=== PATIENT | male | born 1975 | race Caucasian/White ===

== ENCOUNTER 2021-09-21 11:57 | Emergency (ER) | payer OTHER, SELFPAY ==
[2021-09-21 12:04] VITALS: BP 136/84; PULSE 85; RESP 18; TEMP 37.3; O2SAT 99
--- NOTE | 2021-09-21 12:26 | ED.EAR ---
HPI - Ear Problem General Chief complaint: Ear Stated complaint: ear pain Time Seen by Provider: 09/21/21 12:17 Source: patient and RN notes reviewed Mode of arrival: ambulatory Limitations: no limitations History of Present Illness HPI Narrative: 46 year old male presents with concern for right ear pain. He reports pain started yesterday with clear drainage from the ear and decreased hearing. He denies upper respiratory symptoms such as cough, nasal congestion, rhinorrhea or sore throat. Reports swimming in the [place] last week. Reports a history of external ear infection. MD Complaint: ear pain Related Data Allergies Allergy/AdvReac Type Severity Reaction Status Date / Time ofloxacin Allergy Intermediate Swelling Verified 09/21/21 12:39 Review of Systems Review of Systems: CONSTITUTIONAL: Denies malaise, chills, sweats, or fever. EYES: Denies visual changes, redness, or discharge. ENT: Denies rhinorrhea, congestion, sinus pain, and sore throat. Reports right ear pain CARDIOVASCULAR: Denies chest pain, palpitations, or edema. RESPIRATORY: Denies cough. Denies dyspnea. GASTROINTESTINAL: Denies abdominal pain, nausea, vomiting, diarrhea SKIN: Denies rash or itching. MUSCULOSKELETAL: Denies myalgia. NEUROLOGIC: Denies headache. All systems reviewed & are unremarkable except as noted in HPI and below PMFSH Comments At time of signature, agree with nursing past medical, surgical, social and family history. There is no relevant family history pertinent to the presenting complaint Exam Narrative: GENERAL: Well-appearing, well-nourished, and in no acute distress. HEAD: Normocephalic EYES: PERRLA, conjunctivae clear ENT: Nares clear. Mucous membranes moist. Left TM pearly vincent with dull light reflex; right tragal tenderness with EAC edema, erythema and purulent drainage, TM not visible. Oropharynx not erythematous without lesions. Tonsils not enlarged and without exudate, no drooling, no hoarseness, no trismus, uvula midline. NECK: Supple. No lymphadenopathy CHEST: Clear to auscultation, breath sounds equal. No wheezing, rhonchi, rales, or stridor. No respiratory distress, speaks in full sentences. HEART: Regular rate and rhythm. No murmur heard. SKIN: Warm, dry, no rash. NEURO: Alert and oriented x3. PSYCH: Normal mood and affect Course Course Emergency Course: Patient is aware of diagnosis, understands and agrees to treatment plan. Anticipatory guidance given. Patient agrees to follow-up as directed and is aware of reasons to seek care at the emergency department. Portions of this record may have been created with voice recognition software Level of Care: Express Care Visit Vital Signs Vital signs: Vital Signs Temperature 99.2 F 09/21/21 12:04 Pulse Rate 85 09/21/21 12:04 Respiratory Rate 18 09/21/21 12:04 Blood Pressure 136/84 09/21/21 12:04 Pulse Oximetry 99 09/21/21 12:04 Oxygen Delivery Room Air 09/21/21 12:04 Temperature 99.2 F 09/21/21 12:04 Pulse Rate 85 09/21/21 12:04 Respiratory Rate 18 09/21/21 12:04 Blood Pressure 136/84 09/21/21 12:04 Pulse Oximetry 99 09/21/21 12:04 Oxygen Delivery Room Air 09/21/21 12:04 Reviewed. Medical Decision Making MDM Narrative Medical decision making narrative: Differential diagnosis considered: Cosme virus, strep pharyngitis, allergic rhinitis, upper respiratory tract infection, sinusitis, rhinosinusitis, nasopharyngitis. viral pharyngitis, otitis media, otitis externa, otitis effusion, cerumen impaction, foreign body. Exam findings show no acute concerns or changes; patient is non-toxic appearing and is in no distress. Patient is appropriate for outpatient treatment and follow-up. Vital Signs Vital Signs: Vital Signs Temperature 99.2 F 09/21/21 12:04 Pulse Rate 85 09/21/21 12:04 Respiratory Rate 18 09/21/21 12:04 Blood Pressure 136/84 09/21/21 12:04 Pulse Oximetry 99 09/21/21 12:04 Oxygen Delivery Room
== END 2021-09-21 12:41 | disposition home or self-care (01) ==
PROVIDERS: Emergency Provider Nurse Practitioner
DX: H60.501 Unspecified acute noninfective otitis externa, right ear (principal); R01.1 Cardiac murmur, unspecified; Z86.16 Personal history of COVID-19
CPT/HCPCS: 99213; G0463